=== PATIENT | male | born 1995 | race Caucasian/White ===

== ENCOUNTER 2020-04-30 01:56 | Emergency (ER) | payer SELFPAY ==
[~2020-04-30] VITALS: Ht 160 cm; Wt 90.7 kg
[2020-04-30 01:58] VITALS: Ht 160 cm; Wt 90.7 kg
[2020-04-30 02:45] VITALS: BP 128/99
== END 2020-04-30 02:45 | disposition home or self-care (01) ==
LOC: ED 01:56
DX: R51.9 Headache, unspecified (principal); R50.9 Fever, unspecified; Z20.828 Contact with and (suspected) exposure to other viral communicable diseases
CPT/HCPCS: U0003